=== PATIENT | male | born 1950 | race Caucasian/White ===

== ENCOUNTER → 2024-03-28 12:33 | Outpatient (REF) | payer MEDICARE, SELFPAY | LOC: HWRAD 12:33 | DX: R31.9 Hematuria, unspecified (principal) | CPT/HCPCS: 76770 ==

== ENCOUNTER → 2024-04-02 11:38 | Outpatient (REF) | payer MEDICARE, SELFPAY | LOC: HWRAD 11:38 | DX: C67.0 Malignant neoplasm of trigone of bladder (principal) | CPT/HCPCS: 74178; Q9967 ==